=== PATIENT | male | born 1970 | race Caucasian/White ===

== ENCOUNTER 2023-07-14 17:41 | Emergency (ER) | payer SELFPAY ==
--- NOTE | 2023-07-14 18:16 | EDPHYS ---
Physician Documentation [facility] Name: Jeffry Martin Jr Age: 53 yrs Sex: Male : 1970 Arrival Date: 07/14/2023 Time: 17:41 Bed Waiting Private MD: ED Physician Don Correa HPI: 07/14 18:47 This 53 yrs old Male presents to ER via Ambulatory with complaints of Rash, Hand Pain, sb4 Arm Pain. 18:47 The patient's rash thought to be caused by an unknown cause. The rash is located on the sb4 chest and right arm. The rash can be described as erythematous, raised, vesicular. Onset: The symptoms/episode began/occurred 3 day(s) ago. Associated signs and symptoms: Pertinent positives: itching, Pain Pertinent negatives: difficulty breathing, fever. Treatment given at home: steroid lotion/cream. The patient has not experienced similar symptoms in the past. The patient has not recently seen a physician. Historical: - Allergies: 18:22 No Known Allergies; ph - PMHx: 18:22 None; ph ROS: 18:47 Constitutional: Negative for fever, chills, and weight loss, sb4 18:47 Skin: Positive for rash, of the right arm and chest, 18:47 All other systems are negative, Exam: 18:47 Constitutional: This is a well developed, well nourished patient who is awake, alert, sb4 and in no acute distress. Head/Face: Normocephalic, atraumatic. Eyes: Extra-ocular motions intact. Periorbital areas with no swelling, redness, or edema. ENT: Mucous membranes moist. MS/ Extremity: Pulses equal, no cyanosis. Neurovascular intact. Full, normal range of motion. Neuro: Awake and alert, GCS 15, oriented to person, place, time, and situation. Motor strength 5/5 in all extremities. Sensory grossly intact. 18:47 Skin: rash can be described as raised, vesicular, zoster, on the right arm and chest, Vital Signs: 18:09 BP 163 / 97; Pulse 91; Resp 18; Temp 98.6; Pulse Ox 99% on R/A; Weight 99.79 kg; Height ph 6 ft. 0 in. ; 18:09 Body Mass Index 29.84 (99.79 kg, 182.88 cm) ph MDM: 18:13 Patient medically screened. sb4 18:47 Differential diagnosis: shingles, cellulitis, allergic reaction. Data reviewed: vital sb4 signs, nurses notes, and as a result, I will discharge patient. Counseling: I had a detailed discussion with the patient and/or guardian regarding the historical points, exam findings, and any diagnostic results supporting the discharge/admit diagnosis, the need for outpatient follow up, for definitive care, to return to the emergency department if symptoms worsen or persist or if there are any questions or concerns that arise at home. Administered Medications: No medications were administered Disposition: : Co-signature as Attending Physician, Don Correa MD I reviewed the patient's care rt provided by the Advanced Practice Provider and agree with the diagnosis and treatment plan. Disposition Summary: 07/14/23 18:16 Discharge Ordered Notes: Location: Home sb4 Problem: new sb4 Symptoms: are unchanged sb4 Condition: Stable sb4 Diagnosis - Herpes Zoster/Shingles sb4 Followup: sb4 - With: Private Physician - When: 1 week - Reason: Wound Recheck Discharge Instructions: - Discharge Summary Sheet sb4 - Shingles, [id number] sb4 Forms: - Medication Reconciliation Form sb4 - Thank You Letter sb4 - Antibiotic Education sb4 - Prescription Opioid Use sb4 - Patient Portal Instructions sb4 - Leadership Thank You Letter sb4 Prescriptions: - valacyclovir 1 gram Oral tablet - take 1 tablet ORAL route 3 times per day for 7 days; 21 tablet; Refills: 0, sb4 Product Selection Permitted Signatures: Nichelle Jessica RN RN ph Radha Ghosh PA-C PAMendel sb4 Don Correa MD MD rt
--- NOTE | 2023-07-14 18:23 | ER ---
Nurse's Notes [facility] Name: Jeffry Martin Jr Age: 53 yrs Sex: Male : 1970 Arrival Date: 07/14/2023 Time: 17:41 Bed Waiting Private MD: Diagnosis: Herpes Zoster/Shingles Presentation: 07/14 18:09 Chief complaint: Patient states: Vesicular rash to R arm, palm and upper torso, started ph 3 days ago. Coronavirus screen: Vaccine status: Patient reports receiving the 2nd dose of the covid vaccine. Ebola Screen: No symptoms or risks identified at this time. Initial Sepsis Screen: Does the patient meet any 2 criteria? No. Patient's initial sepsis screen is negative. Does the patient have a suspected source of infection? No. Patient's initial sepsis screen is negative. Risk Assessment: Do you want to hurt yourself or someone else? Patient reports no desire to harm self or others. Onset of symptoms was July 14, 2023. 18:09 Method Of Arrival: Ambulatory ph 18:09 Acuity: ARINA 4 ph Triage Assessment: 18:10 General: Appears in no apparent distress. Behavior is calm, cooperative, appropriate ph for age, Denies fever. Pain: Complains of pain in right arm. Neuro: Level of Consciousness is awake, alert, obeys commands, Oriented to person, place, time, situation. Derm: Rash noted that is red, raised, vesicular, on right clavicle, anterior aspect of right upper chest, right hand and right arm. Musculoskeletal: Circulation, motion, and sensation intact. Range of motion: intact in all extremities. Historical: - Allergies: 18:22 No Known Allergies; ph - PMHx: 18:22 None; ph Screenin:10 [facility] ED Fall Risk Assessment (Adult) History of falling in the last 3 months, ph including since admission No falls in past 3 months (0 pts) Score/Fall Risk Level 0 - 2 = Low Risk Oriented to surroundings, Maintained a safe environment. Abuse screen: Denies threats or abuse. Denies injuries from another. Nutritional screening: No deficits noted. Tuberculosis screening: No symptoms or risk factors identified. Vital Signs: 18:09 BP 163 / 97; Pulse 91; Resp 18; Temp 98.6; Pulse Ox 99% on R/A; Weight 99.79 kg; Height ph 6 ft. 0 in. ; 18:09 Body Mass Index 29.84 (99.79 kg, 182.88 cm) ph ED Course: 17:46 Patient arrived in ED. im 17:57 Rahda Ghosh PA-C is PHCP. sb4 17:57 Don Correa MD is Attending Physician. sb4 18:10 Patient has correct armband on for positive identification. ph 18:10 Arm band placed on. ph 18:10 No provider procedures requiring assistance completed. Patient did not have IV access ph during this emergency room visit. 18:17 Triage completed. ph 18:17 Nichelle Jessica, RN is Primary Nurse. ph Administered Medications: No medications were administered Medication: 18:10 VIS not applicable for this client. ph Outcome: 18:16 Discharge ordered by . sb4 18:22 Patient left the ED. ph 18:22 Discharged to home ambulatory, ph 18:22 Condition: good 18:22 Discharge instructions given to patient, Instructed on discharge instructions, follow up and referral plans. medication usage, Demonstrated understanding of instructions, follow-up care, medications, Prescriptions given X 1, Signatures: Nichelle Jessica, RN RN Radha Ghosh PA-C PA-C sb4 Kat Castro im
[2023-07-14 19:22] VITALS: BP 163/97; TEMP 98.6; O2SAT 99
== END 2023-07-14 18:22 | disposition home or self-care (01) ==
LOC: ER 17:41
DX: B02.9 Zoster without complications (principal)